=== PATIENT | female | born 1995 | race Caucasian/White ===

== ENCOUNTER → 2016-12-29 | Outpatient (CLI) | payer BC ==
--- NOTE | 2016-12-29 14:59 | DIAGNOSTIC IMAGING REPORT ---
LEFT HAND MIN 3 VIEWS CLINICAL HISTORY: Left hand pain. Fracture. COMPARISON: None FINDINGS: There is a comminuted, nondisplaced fracture of the shaft of the left fifth metacarpal. This appears acute to subacute. No additional fractures are identified on this exam. Carpal bones are intact. IMPRESSION: Comminuted, nondisplaced fracture of the shaft of the left fifth metacarpal. Electronically signed by: González Pinto M.D. 12/29/2016 2:57 PM Dictated Date/Time: 12/29/2016 2:54 PM
== END | disposition home or self-care (01) ==
LOC: C.RDSM 15:48
PROVIDERS: ATTEND Internal Medicine
DX: S62.92XA Unspecified fracture of left hand, initial encounter for closed fracture (principal); X58.XXXA Exposure to other specified factors, initial encounter

== ENCOUNTER → 2017-01-10 | Outpatient (CLI) | payer BC ==
--- NOTE | 2017-01-10 14:13 | DIAGNOSTIC IMAGING REPORT ---
LEFT HAND MIN 3 VIEWS CLINICAL HISTORY: Left hand pain. Follow-up fracture. COMPARISON: Left hand radiographs December 29, 2016. FINDINGS: The oblique nondisplaced fracture of the mid shaft of the left fifth metacarpal is unchanged in appearance since exam of December 29, 2016. No additional fractures within the left hand are identified. Carpal bones are intact. IMPRESSION: No change in alignment of the nondisplaced oblique fracture of the left fifth metacarpal. Electronically signed by: González Pinto M.D. 01/10/2017 2:12 PM Dictated Date/Time: 01/10/2017 2:11 PM
== END | disposition home or self-care (01) ==
LOC: C.RDSM 14:15
PROVIDERS: ATTEND Internal Medicine
DX: Z87.81 Personal history of (healed) traumatic fracture (principal)

== ENCOUNTER → 2017-02-07 | Outpatient (CLI) | payer BC ==
--- NOTE | 2017-02-07 14:26 | DIAGNOSTIC IMAGING REPORT ---
LEFT HAND MIN 3 VIEWS CLINICAL HISTORY: LEFT HAND FX COMPARISON: 01/10/2017 DISCUSSION: There is no change in alignment of the oblique/spiral fracture the fifth metacarpal. There is evidence for healing with subtle periostitis. IMPRESSION: Healing oblique/spiral fracture of the fifth metacarpal. No change in alignment. Electronically signed by: Irving Argueta M.D. 02/07/2017 2:25 PM Dictated Date/Time: 02/07/2017 2:24 PM
== END | disposition home or self-care (01) ==
LOC: C.RDSM 14:12
PROVIDERS: ATTEND Internal Medicine
DX: S62.357D Nondisplaced fracture of shaft of fifth metacarpal bone, left hand, subsequent encounter for fracture with routine healing (principal); X58.XXXD Exposure to other specified factors, subsequent encounter

== ENCOUNTER → 2017-03-13 | Outpatient (CLI) | payer BC ==
--- NOTE | 2017-03-13 10:18 | DIAGNOSTIC IMAGING REPORT ---
LEFT HAND MIN 3 VIEWS CLINICAL HISTORY: LEFT HAND FX fracture. Trauma. COMPARISON: 02/07/2017 DISCUSSION: Oblique nondisplaced fracture mid shaft fifth metacarpal. Trace callus formation and periosteal reaction unchanged from the prior study. Alignment remains anatomic. No new or interval findings. IMPRESSION: Healing fracture midshaft fifth metacarpal showing no major change compared to the prior study. Electronically signed by: Osmar Burch M.D. 03/13/2017 10:16 AM Dictated Date/Time: 03/13/2017 10:16 AM
== END | disposition home or self-care (01) ==
LOC: C.RDSM 10:15
PROVIDERS: ATTEND Internal Medicine
DX: S62.357A Nondisplaced fracture of shaft of fifth metacarpal bone, left hand, initial encounter for closed fracture (principal); X58.XXXA Exposure to other specified factors, initial encounter